=== PATIENT | female | born 1985 | race Two or more races ===

== ENCOUNTER 2024-12-06 15:16 | Inpatient (IN) | payer MEDICAID, OTHER ==
[~2024-12-06] VITALS: Ht 162.6 cm; Wt 84.0 kg
--- NOTE | 2024-12-06 15:36 | ED.PDOC ---
SHOT MAN HPI Comments HPI: Suprapubic abdominal pain and vaginal bleeding x3 weeks, found unresponsive at scene by EMS. Patient diagnosed with uterine tumor at [place] 10 days ago with results sent to her OBGYN in [place]. Per EMS estimated 507 100 cc of blood loss found on the floor of the bathroom. They started the patient on fluid hydration and her blood pressure improved. On arrival she is very weak and pale but awake and answers questions. Patient was evaluated immediately. OB Gyne were consulted immediately. Initial Vital Signs: Temp : BP: HR: RR: SpO2: Past Medical History: Uterine Tumor Past Surgical History: Tubal Ligation, , Gallbladder Social History: Denies smoking, ETOH, or drug use. Medications: No medications. Allergies: NKDA HPI: Poor Historian. Past Medcial History: Past Surgical History: REVIEW OF SYSTEMS: CONSTITUTIONAL: Denies acute: fever, diaphoresis, chills, HEAD: Denies acute: headache, photophobia Eyes: Denies acute: Double vision, vision loss, eye pain, eye discharge. EARS: Denies acute: tinnitus, hearing loss, ear discharge, ear pain, THROAT: Denies acute: sore throat, swelling, difficulty swallowing , pain with swallowing, change in voice. NECK: Denies acute: neck pain, neck swelling, stiff neck. HEART: Denies acute : chest pain, palpitations, LUNGS: Denies acute: SOB, wheezing, cough, hemoptysis ABDOMEN: Denies acute: Nausea, Vomiting, diarrhea, melena , hematemesis, hematochezia SKIN: Denies acute: rash, redness, lesions, itchiness. EXTREMITIES: Denies acute: calf pain, numbness, tingling, weakness, denies pain in extremity. Denies acute: Low back pain. Neuro: Denies acute: focal neurological deficit, motor or sensory focal neurological de ficit, tremors, seizure like activity, confusion, change in mental status, loss of bowel or bladder function, cauda equina like symptoms. : Denies acute: dysuria, hematuria, flank pain, increase in urinary frequency. PSYCH: Denies acute: hallucination, suicidal ideation, homicidal ideation. FEMALE: Denies acute: foul odor, unusual discharge. PHYSICAL EXAM: General: no acute distress, awake and alert. Head: normocephalic, atraumatic. Neck: supple, trachea is midline, no swelling. Throat: Normal phonation. Eyes:, no erythema, no purulent discharge, no proptosis, no icterus. Heart: regular tachycardic, no significant murmur appreciated. Lungs: no apparent respiratory distress, Able to speak in full sentences. No wheezing, no rhonchi, no crackles. No stridors Clear to auscultation bilaterally. Abdomen: Suprapubic tender to palpation, non distended, soft, no guarding, no rebound, + bowel sounds. Noted large clot at the front of the vagina. Neuro: Awake, Alert, oriented to name, self, situation, follows commands GCS=15. Speech is normal. Skin: no petechia, no purpura, no cyanosis, noticeably-pale, not jaundice. Lower extremities: --no - Pitting edema no deformity, no focal swelling, no calf TTP. Makes eye contact. moves all four extremities. Face: no apparent facial droop. Chief Complaint: Vaginal Bleed Time Seen by MD: 15:35 Reviewed Notes: Medications, Allergies Allergies: Coded Allergies: NO KNOWN ALLERGIES (Unverified , 12/06/24) Information Source: Patient, Emergency Med Personnel Mode of Arrival: EMS Was a procedure done? Was a procedure done?: No Differential Diagnosis (HEARING INSTRUMENT SPECIALIST) Vaginal Bleeding: - Complete, - Incomplete, - Inevitable, - Missed, - Threatened, Abruptio Placentae, Blood Loss Anemia, Cervicitis, Dysmenorrhea, Ectopic , Hormonal, Menorrhagia, Menometrorrhagia, Menstrual Bleeding, Myomatous Uterus, PID, Placenta Previa, Precipitous Hct, Trauma, UTI X-Ray, Labs, Meds, VS Vital Signs Date Time Temp Pulse Resp B/P (MAP) Pulse Ox O2 Delivery O2 Flow Rate FiO2 12/06/24 22:00 98.6 89 23 101/53 (69) 100 98.6 12/06/24 20:23 98.1 88 26 98/56 98.1 12/06/24 20:23 98.1 88 26 98/54 (69) 100 98.1 12/06/24 20:18 97 17 100 Nasal Cannula* 2 N/A Non-Rebreather 12/06/24 20:00 89 12/06/24 19:30 99.1 97 18 104/60 (75) 100 99.1 12/06/24 19:02 98.6 103 19 94/60 (71) 100 98.6 12/06/24 19:00 98.6 103 19 94/60 98.6 12/06/24 18:15 98.6 121 26 105/67 98.6 12/06/24 18:00 98.7 108 28 102/55 (71) 100 98.7 12/06/24 17:55 98.7 108 28 110/69 98.7 12/06/24 16:31 98.7 93 18 84/51 (62) 92 12/06/24 16:00 110 12/06/24 15:47 91 19 100 Non-Rebreather 14 N/A 12/06/24 15:47 97.9 91 19 115/63 (80) 100 97.9 Lab Test 12/06/24 22:53 12/06/24 18:25 12/06/24 17:45 12/06/24 17:00 Range/Units Troponin I High Sensitivity 7 16 </=34 ng/L Urine Color Colorless Yellow Urine Clarity Clear Clear Urine pH 5.0 5.0-9.0 Urine Specific [place] 1.008 1.001-1.035 Urine Protein Negative Negative Urine Ketones Negative Negative Urine Blood Negative Negative /uL Urine Nitrite Negative Negative Urine Bilirubin Negative Negative Urine Urobilinogen Normal Negative mg/dL Urine Leukocyte Esterase Negative Negative /uL Urine RBC <1 0 - 4 /hpf Urine Microscopic WBC 1 0-5 /HPF Urine Squamous Epithelial Cells Few <5 /hpf Urine Bacteria None seen None Seen /hpf Urine Glucose Normal Normal mg/dL Hemoglobin 7.0 #*L 12.2-16.2 g/dL Hematocrit 21.3 #L 36.0-46.0 % Prothrombin Time 11.4 9.3-11.8 sec Prothrombin Time INR 1.08 0.9-1.15 Activated Partial Thromboplast Time 20.1 L 24.5-34.5 SEC Test 12/06/24 16:00 Range/Units White Blood Count 10.5 4.4-10.8 10^3/uL Red Blood Count 2.86 L 4.0-5.20 10^6/uL Hemoglobin 8.5 L 12.2-16.2 g/dL Hematocrit 26.8 L 36.0-46.0 % Mean Corpuscular Volume 93.8 80.0-100.0 fL Mean Corpuscular Hemoglobin 29.7 28.0-32.0 pg Mean Corpuscular Hemoglobin Concent 31.7 L 32.0-36.0 g/dL Red Cell Distribution Width 13.2 11.8-14.3 % Platelet Count 199 140-450 10^3/uL Mean Platelet Volume 9.4 6.9-10.8 fL Neutrophils (%) (Auto) 82.6 H 37.0-80.0 % Lymphocytes (%) (Auto) 12.4 10.0-50.0 % Monocytes (%) (Auto) 4.3 0.0-12.0 % Eosinophils (%) (Auto) 0.5 0.0-7.0 % Basophils (%) (Auto) 0.2 0.0-2.0 % Neutrophils # (Auto) 8.7 H 1.6-8.6 10 ^3/uL Lymphocytes # (Auto) 1.3 0.4-5.4 10 ^3/uL Monocytes # (Auto) 0.5 0-1.3 10 ^3/uL Eosinophils # (Auto) 0.1 0-0.8 10 ^3/uL Basophils # (Auto) 0 0-0.2 10 ^3/uL Nucleated Red Blood Cells 0.1 % Sodium Level 141 136-145 mmol/L Potassium Level 3.3 L 3.5-5.1 mmol/L Chloride Level 111 H 98-107 mmol/L Carbon Dioxide Level 18 L 20-31 mmol/L Anion Gap 12 5-15 Blood Urea Nitrogen 10 9-23 mg/dL Creatinine 0.72 0.550-1.02 mg/dL Glomerular Filtration Rate Calc 109 >90 mL/min BUN/Creatinine Ratio 13.9 10.0-20.0 Serum Glucose 158 H 74-106 mg/dL Calcium Level 8.2 L 8.7-10.4 mg/dL Total Bilirubin 0.6 0.2-1.0 mg/dL Aspartate Amino Transferase (AST) 15 13-40 U/L Alanine Aminotransferase (ALT) 12 7-40 U/L Alkaline Phosphatase 59 46-116 U/L Troponin I High Sensitivity 8 </=34 ng/L Total Protein 5.9 5.7-8.2 g/dL Albumin 3.8 3.2-4.8 g/dL Current Medications Medications (Trade) Dose Ordered Sig/Isa Route Start Time Stop Time Status Last Admin Sodium Chloride 1,000 ml @ 1,000 mls/hr Q1H ONCE IV 12/06/24 15:30 12/06/24 16:29 DC 12/06/24 15:55 Tranexamic Acid 1000 mg/Sodium Chloride 110 ml @ 300 mls/hr ONCE ONCE IV 12/06/24 15:30 12/06/24 15:51 DC 12/06/24 16:52 Ceftriaxone Sodium 50 ml @ 100 mls/hr ONCE ONCE IV 12/06/24 16:30 12/06/24 16:59 DC 12/06/24 17:22 Sodium Chloride 1,000 ml @ 1,000 mls/hr Q1H ONCE IV 12/06/24 17:30 12/06/24 18:29 DC 12/06/24 17:32 Sodium Chloride 1,000 ml @ 60 mls/hr [id number] IV 12/06/24 21:15 12/06/24 21:48 Acetaminophen/ Hydrocodone Bitart ([place] 5/325MG Tab) 1 tab Q4HP PRN PO 12/06/24 21:15 12/06/24 21:49 Potassium Chloride (Klor-Con Tablet) 20 meq ONCE ONCE PO 12/06/24 21:15 12/06/24 21:37 DC 12/06/24 21:49 PATIENT: BARBER HOLTCCT: [id number]: [id number] : 1985 LOC: ER ROOM / BED: / AGE / SEX: 39 / F ADM STATUS: REG ER SERVICE 1524 ORDERING PHYSICIAN: XOCHITL DAWN DO PROCEDURE(s): PELTR - TRANSVAGINAL US NON OB REASON: VAG BLEED ORDER NUMBER(s): [id number], ACCESSION NUMBER(s): [id number] EXAM: US TRANSVAGINAL US NON OB CLINICAL HISTORY: VAG BLEED TECHNIQUE: Transabdominal and transvaginal ultrasound of the pelvis with color Doppler flow as clinically indicated. COMPARISON: None Findings: Same-day quantitative beta-hCG is not available. Uterus measures 14.5 x 7.7 x 6.4 cm in size with relatively homogeneous echotexture and normal contours. 7.2 x 5.6 x 5.9 cm hypoechoic, vascular lesion in the lower uterine fundus. Endometrial thickness measures 1.5 cm with smooth contour. Cervix appears grossly unremarkable. Bilateral ovaries not visualized. Trace free fluid in the cul-de-sac. Impression: 1. 7.2 cm hypoechoic lesion in the lower uterine fundus which may reflect a fibroid. Recommend contrast enhanced MRI for further evaluation. 2. Thickened endometrium, nonspecific. Correlate with phase of menstrual cycle. [place] on MRI. 3. Bilateral ovaries not visualized. 4. Trace free fluid in the cul de sac, nonspecific. ATED BY: ZAINAB HOLT DO DICTATED DATE/TIME: 12/06/241645 SIGNED BY: ZAINAB HLOT DO SIGNED DATE/TIME: 12/06/241645 Time of 1ST Reevaluation: 16:35 Reevaluation 1ST: Unchanged Time of 2ND Reevaluation: 16:08 (OB Gyne team came to bedside. They agree with our management. They recommend to add FFP as well. Doctor. Johnson. ) Consultation: varitypist Patient Education/Counseling: Diagnosis, Treatment Family Education/Counseling: Other Comments Patient presented with the above HPI.--hemorrhagic shock, severe vaginal bleed---workup was initiated. patient was found with the above mentioned diagnosis. the following medications were ordered: please refer to order lists of meds and tests obtained by myself Dr. Dawn. Patient ED course and VS have been stabilized. Patient has been reassessed in the ED and remained in a stable condition. Pertinent incidental findings were discussed with the patient and/or family. Patient/family voices understanding and is agreeable with plan. Patient has been observed in the ED adequate length of time to insure improvement/stability. Escalation of care considered: Consideration of escalation to observation or admission Patient was ADMITTED to the medicine team for further evaluation and treatment of their presentation. Patient was consented for blood transfusion. All the reports of any imaging studies that were ordered by myself were reviewed by myself. Departure 1 Departure Time of Disposition: 16:08 Impression: Primary Impression: Vaginal bleeding Additional Impressions: Hemorrhagic shock Uterine fibroid Symptomatic anemia Disposition: ADMITTED INPATIENT Admit to: Tele Condition: Guarded Discharged With: Self Critical Care Note Critical Care Time?: Yes (90 min-critical care time only) I personally scribed for XOCHITL DAWN DO ([email or web address]) on 12/06/24 at 15:36. Electronically submitted by Owen Ahuja ([email or web address]). I personally scribed for XOCHITL DAWN DO ([email or web address]) on 12/06/24 at 15:57. Electronically submitted by Owen Ahuja ([email or web address]). I personally scribed for XOCHITL DAWN DO ([email or web address]) on 12/06/24 at 18:58. Electronically submitted by Tam Zhang ([email or web address]). XOCHITL DAWN DO Dec 06, 2024 15:36
[2024-12-06 15:47] VITALS: PULSE 91; RESP 19; O2SAT 100
[2024-12-06] MEDS: SODIUM CHLORIDE 0.9% 1,000 ML IV ONE ×2 (15:55→17:32)
[2024-12-06 16:23] LABS: Basophils # (auto) 0 10 ^3/uL (0-0.2); Basophils % (auto) 0.2 % (0.0-2.0); Eosinophils # (auto) 0.1 10 ^3/uL (0-0.8); Eosinophils % (auto) 0.5 % (0.0-7.0); Hematocrit 26.8 % (36.0-46.0); Hemoglobin 8.5 g/dL (12.2-16.2); Lymphocytes # (auto) 1.3 10 ^3/uL (0.4-5.4); Lymphocytes % (auto) 12.4 % (10.0-50.0); Mean Corpuscular Hemoglobin 29.7 pg (28.0-32.0); Mean Corpuscular Hgb Conc. 31.7 g/dL (32.0-36.0); Mean Corpuscular Volume 93.8 fL (80.0-100.0); Monocytes # (auto) 0.5 10 ^3/uL (0-1.3); Monocytes % (auto) 4.3 % (0.0-12.0); Neutrophils # (auto) 8.7 10 ^3/uL (1.6-8.6); Neutrophils % (auto) 82.6 % (37.0-80.0); Nucleated Red Blood Cells % 0.1 %; Platelet Count (auto) 199 10^3/uL (140-450); Red Blood Cells 2.86 10^6/uL (4.0-5.20); Red Cell Distribution Width 13.2 % (11.8-14.3); White Blood Cell 10.5 10^3/uL (4.4-10.8)
--- NOTE | 2024-12-06 16:48 | DVH ---
EXAM: US TRANSVAGINAL US NON OB CLINICAL HISTORY: VAG BLEED TECHNIQUE: Transabdominal and transvaginal ultrasound of the pelvis with color Doppler flow as clinic ally indicated. COMPARISON: None Findings: Same-day quantitative beta-hCG is not available. Uterus measures 14.5 x 7.7 x 6.4 cm in size with relatively homogeneous echotexture and normal contou rs. 7.2 x 5.6 x 5.9 cm hypoechoic, vascular lesion in the lower uterine fundus. Endometrial thickness measures 1.5 cm with smooth contour. Cervix appears grossly unremarkable. Bilateral ovaries not visualized. Trace free fluid in the cul-de-sac. Impression: 1. 7.2 cm hypoechoic lesion in the lower uterine fundus which may reflect a fibroid. Recommend contra st enhanced MRI for further evaluation. 2. Thickened endometrium, nonspecific. Correlate with phase of menstrual cycle. [place] on MRI. 3. Bilateral ovaries not visualized. 4. Trace free fluid in the cul de sac, nonspecific.
[2024-12-06] MEDS: TRANEXAMIC ACID 1,000 MG in SODIUM CHL 0.9% 100 ML IV ONE (16:52)
[2024-12-06 16:58] LABS: Alanine Aminotransferase 12 U/L (7-40); Alkaline Phosphatase 59 U/L (46-116)
[2024-12-06 16:59] LABS: Albumin 3.8 g/dL (3.2-4.8); Anion Gap 12 (5-15); Aspartate Aminotransferase 15 U/L (13-40); BUN/Creatinine Ratio 13.9 (10.0-20.0); Bilirubin, Total 0.6 mg/dL (0.2-1.0); Blood Urea Nitrogen 10 mg/dL (9-23); Calcium 8.2 mg/dL (8.7-10.4); Carbon Dioxide 18 mmol/L (20-31); Chloride 111 mmol/L (98-107); Glucose 158 mg/dL (74-106); Potassium 3.3 mmol/L (3.5-5.1); Sodium 141 mmol/L (136-145); Total Protein 5.9 g/dL (5.7-8.2)
[2024-12-06] MEDS: cefTRIAXone 1GM/50ML D5W 50 ML IV ONE (17:22)
[2024-12-06 17:34] LABS: INR 1.08 (0.9-1.15); Partial Thromboplastin Time 20.1 SEC (24.5-34.5); Prothrombin Time 11.4 sec (9.3-11.8)
[2024-12-06 17:55] VITALS: BP 110/69; PULSE 108; RESP 28; TEMP 98.7
[2024-12-06 18:13] LABS: Hematocrit 21.3 % (36.0-46.0)
[2024-12-06 18:15] VITALS: BP 105/67; PULSE 121; RESP 26; TEMP 98.6
[2024-12-06 18:55] LABS: Urine Bacteria None Seen /hpf (None Seen)
[2024-12-06 19:00] VITALS: BP 94/60; PULSE 103; RESP 19; TEMP 98.6
[2024-12-06 19:04] LABS: Urine Blood Negative /uL (Negative); Urine Clarity Clear (Clear); Urine Color Colorless (Yellow); Urine Protein, UAD Negative (Negative); Urine Specific Gravity 1.008 (1.001-1.035); Urine Squamous Epithelial Cell FEW /hpf (<5); Urine Urobilinogen Normal (Negative); Urine WBC 1 /HPF (0-5)
[2024-12-06 20:18] VITALS: PULSE 97; RESP 17; O2SAT 100
[2024-12-06 20:23] VITALS: BP 98/56; PULSE 88; RESP 26; TEMP 98.1
[2024-12-06] MEDS ORDERED: ACETAMINOPHEN 325 MG TAB PO PRN (21:15)
[2024-12-06] MEDS: SODIUM CHLORIDE 0.9% 1,000 ML IV SCH (21:48)
[2024-12-06] MEDS: POTASSIUM CHL 20 Meq TABLET PO ONE (21:49)
[2024-12-06] MEDS: HYDROcodone-ACET 5/325MG TAB PO PRN (21:49)
--- NOTE | 2024-12-06 23:04 | DVHHP2 ---
History of Present Illness Reason for Visit: Vaginal bleeding History of Present Illness The patient is a 39-year-old female with past medical history of uterine tumor presented to [facility] ED with complaint of suprapubic abdominal pain and vaginal bleeding for the past 3 weeks. Patient diagnosed with uterine tumor at [place] 10 days ago with results sent to her OBGYN in [place]. Patient was seen and evaluated in the ED, laboratory data shows WBC 10.5, hemoglobin 7.0, hematocrit 21.3, platelets 199, sodium 141, potassium 3.3, BUN 10, creatinine 0.72, GFR 109, glucose 158, calcium 8.2, troponin 16. Patient will receive 1 unit of frozen plasma, please see medication orders section in the computer. On my assessment, at bedside, patient denied chest pain, no headache, no dizziness, no nausea, no vomiting, no fever, no chills. Patient was admitted for further evaluation and medical management. Past Medical History Uterine Tumor Past Surgical History Tubal Ligation, , Gallbladder Family History Reviewed, noncontributory to the management of this case. Past Social History The patient lives at home, denies smoking, alcohol or illicit drugs abuse. Review of Systems Constitutional: Yes: Weakness; No: Fever, Chills, Sweats, Malaise, Other Eyes: No: Pain, Vision change, Conjunctivae inflammation, Eyelid inflammation, Other, Redness ENT: No: Ear pain, Ear discharge, Nose pain, Nose discharge, Nose congestion, Mouth pain, Mouth swelling, Throat pain, Throat swelling, Other Respiratory: No: Cough, Dry, Shortness of breath, SOB with excertion, Wheezing, Hemoptysis, Pleuritic Pain, Sputum, Wheezing, Other Cardiovascular: No: Chest Pain, Palpitations, Orthopnea, Paroxysmal Noc. Dyspnea, Edema, Lt Headedness, Other Gastrointestinal: No: Nausea, Vomiting, Abdominal Pain, Diarrhea, Constipation, Melena, Hematochezia, Other Genitourinary: No Dysuria, No Frequency, No Incontinence, No Hematuria, No Retention; Other (Vaginal bleed) Musculoskeletal: No: other, neck pain, shoulder pain, arm pain, back pain, hand pain, leg pain, foot pain Skin: No: Rash, Lesions, Jaundice, Bruising, Other Neurological: No: Weakness, Numbness, Incoordination, Change in speech, Confusion, Seizures, Other Allergies: Coded Allergies: NO KNOWN ALLERGIES (Unverified , 12/06/24) Medications Current Medications Medications Dose Ordered Sig/Isa Route Start Time Stop Time Status Last Admin Dose Admin Sodium Chloride 1,000 ml @ 60 mls/hr [id number] IV 12/06/24 21:15 12/06/24 21:48 60 MLS/HR Acetaminophen/ Hydrocodone Bitart 1 tab Q4HP PRN PO 12/06/24 21:15 12/06/24 21:49 1 TAB Ondansetron HCl 4 mg Q4HP PRN IV 12/06/24 21:15 Docusate Sodium 100 mg BIDPRN PRN PO 12/06/24 21:15 Acetaminophen 650 mg Q6HP PRN PO 12/06/24 21:15 Exam Vital Signs Vital Signs Date Time Temp Pulse Resp B/P (MAP) Pulse Ox O2 Delivery O2 Flow Rate FiO2 12/06/24 22:00 98.6 89 23 101/53 (69) 100 98.6 12/06/24 20:18 Nasal Cannula* 2 N/A Non-Rebreather General Appearance: Alert, Oriented X3, Cooperative, No acute distress HEENT: Atraumatic, PERRLA, EOMI, Mucous membr. moist/pink Respiratory: Clear to auscultation, Normal air movement Cardiovascular: Regular rate, Normal S1, Normal S2, No murmurs Abdominal: Normal bowel sounds, Soft, No tenderness, No hepatospenomegaly, No masses Extremities: No clubbing, No cyanosis, No edema, Normal pulses, No tenderness/swelling Skin: No rashes, No breakdown, No significant lesion Neuro: Normal speech, Normal tone, Sensation intact, Cranial nerves 3-12 NL, Reflexes 2+, Other (Generalized weakness) Psych/Mental Status: Mental status NL, Mood NL Labs/Xrays Labs Test 12/06/24 22:53 12/06/24 18:25 12/06/24 17:45 12/06/24 17:00 Range/Units Urine Color Colorless Yellow Urine Clarity Clear Clear Urine pH 5.0 5.0-9.0 Urine Specific [place] 1.008 1.001-1.035 Urine Protein Negative Negative Urine Ketones Negative Negative Urine Blood Negative Negative /uL Urine Nitrite Negative Negative Urine Bilirubin Negative Negative Urine Urobilinogen Normal Negative mg/dL Urine Leukocyte Esterase Negative Negative /uL Urine RBC <1 0 - 4 /hpf Urine Microscopic WBC 1 0-5 /HPF Urine Squamous Epithelial Cells Few <5 /hpf Urine Bacteria None seen None Seen /hpf Urine Glucose Normal Normal mg/dL Hemoglobin 7.0 #*L 12.2-16.2 g/dL Hematocrit 21.3 #L 36.0-46.0 % Prothrombin Time 11.4 9.3-11.8 sec Prothrombin Time INR 1.08 0.9-1.15 Activated Partial Thromboplast Time 20.1 L 24.5-34.5 SEC Test 12/06/24 16:00 Range/Units White Blood Count 10.5 4.4-10.8 10^3/uL Red Blood Count 2.86 L 4.0-5.20 10^6/uL Mean Corpuscular Volume 93.8 80.0-100.0 fL Mean Corpuscular Hemoglobin 29.7 28.0-32.0 pg Mean Corpuscular Hemoglobin Concent 31.7 L 32.0-36.0 g/dL Red Cell Distribution Width 13.2 11.8-14.3 % Platelet Count 199 140-450 10^3/uL Mean Platelet Volume 9.4 6.9-10.8 fL Neutrophils (%) (Auto) 82.6 H 37.0-80.0 % Lymphocytes (%) (Auto) 12.4 10.0-50.0 % Monocytes (%) (Auto) 4.3 0.0-12.0 % Eosinophils (%) (Auto) 0.5 0.0-7.0 % Basophils (%) (Auto) 0.2 0.0-2.0 % Neutrophils # (Auto) 8.7 H 1.6-8.6 10 ^3/uL Lymphocytes # (Auto) 1.3 0.4-5.4 10 ^3/uL Monocytes # (Auto) 0.5 0-1.3 10 ^3/uL Eosinophils # (Auto) 0.1 0-0.8 10 ^3/uL Basophils # (Auto) 0 0-0.2 10 ^3/uL Nucleated Red Blood Cells 0.1 % Sodium Level 141 136-145 mmol/L Potassium Level 3.3 L 3.5-5.1 mmol/L Chloride Level 111 H 98-107 mmol/L Carbon Dioxide Level 18 L 20-31 mmol/L Anion Gap 12 5-15 Blood Urea Nitrogen 10 9-23 mg/dL Creatinine 0.72 0.550-1.02 mg/dL Glomerular Filtration Rate Calc 109 >90 mL/min BUN/Creatinine Ratio 13.9 10.0-20.0 Serum Glucose 158 H 74-106 mg/dL Calcium Level 8.2 L 8.7-10.4 mg/dL Total Bilirubin 0.6 0.2-1.0 mg/dL Aspartate Amino Transferase (AST) 15 13-40 U/L Alanine Aminotransferase (ALT) 12 7-40 U/L Alkaline Phosphatase 59 46-116 U/L Total Protein 5.9 5.7-8.2 g/dL Albumin 3.8 3.2-4.8 g/dL PATIENT: HARIKA KISER ACCT: [id number] UNIT: [id number] : 1985 LOC: ER ROOM / BED: / AGE / SEX: 39 / F ADM STATUS: REG ER SERVICE 1524 ORDERING PHYSICIAN: XOCHITL DAWN DO PROCEDURE(s): PELTR - TRANSVAGINAL US NON OB REASON: VAG BLEED ORDER NUMBER(s): [id number], ACCESSION NUMBER(s): [id number] EXAM: US TRANSVAGINAL US NON OB CLINICAL HISTORY: VAG BLEED TECHNIQUE: Transabdominal and transvaginal ultrasound of the pelvis with color Doppler flow as clinically indicated. COMPARISON: None Findings: Same-day quantitative beta-hCG is not available. Uterus measures 14.5 x 7.7 x 6.4 cm in size with relatively homogeneous echotexture and normal contours. 7.2 x 5.6 x 5.9 cm hypoechoic, vascular lesion in the lower uterine fundus. Endometrial thickness measures 1.5 cm with smooth contour. Cervix appears grossly unremarkable. Bilateral ovaries not visualized. Trace free fluid in the cul-de-sac. Impression: 1. 7.2 cm hypoechoic lesion in the lower uterine fundus which may reflect a fibroid. Recommend contrast enhanced MRI for further evaluation. 2. Thickened endometrium, nonspecific. Correlate with phase of menstrual cycle. [place] on MRI. 3. Bilateral ovaries not visualized. 4. Trace free fluid in the cul de sac, nonspecific. Assessment/Plan Assessment/Plan Vaginal bleeding Hemorrhagic shock Uterine fibroid Symptomatic anemia Plan 1. Admit to telemetry unit 2. Breathing treatment 3. Pain control management 4. Management of fluids and electrolytes 5. Consultation for hospitalist/mold worker 6. Diagnostic tests transvaginal ultrasound 7. DVT prophylaxis-on SCDs 8. Repeat labs CBC, CMP in a.m. 9. Continue with current medical management 10. Treatment plan discussed with patient and RN. Patient verbalized understanding. Plan discussed with: Patient, Other (RN) My Orders Orders - MATT BENITEZ DNP Procedure Category Date Status Time Allergies VIANEY 12/06/24 In Process 21:11 Code Status CODE 12/06/24 Transmitted 21:11 Sodium Chloride 0.9% PHA 12/06/24 In Process 21:15 Oxygen Per Hour RT 12/06/24 Transmitted 21:11 Hydrocodone-Acet PHA 12/06/24 In Process 5/325mg Tab (Sayre 21:15 Ondansetron Hcl PHA 12/06/24 In Process (Zofran) 21:15 Docusate Sodium PHA 12/06/24 In Process Capsule (Colace 21:15 Complete Blood Count LAB 12/07/24 Verified 04:00 Comprehensive LAB 12/07/24 Verified Metabolic Panel 04:00 Cardiac DIET 12/07/24 Transmitted Diet-2gna,Lofat,Lochol Breakfast Condition: Serious VIANEY 12/06/24 In Process 21:11 Acetaminophen Tablet PHA 12/06/24 In Process (Tylenol Tablet) 21:15 Bedrest With Bathroom VIANEY 12/06/24 In Process Privileg 21:11 Sequential VIANEY 12/06/24 In Process Compression Device Admit ADMIT 12/06/24 Verified 23:02 Nitroglycerin PHA 12/06/24 Verified Sublingual (Ntrostat 23:15 Morphine Sulfate PHA 12/06/24 Verified Injection 23:15 Notify Of Changes VIANEY 12/06/24 Verified From Base 23:02 Nursing Program Manager For [facility] 12/06/24 Verified 24 Hours 23:02 Emergency Dysrhythmia VIANEY 12/06/24 Verified Protocol 23:02 Rhythm Strips Once VIANEY 12/06/24 Verified Every Shift 23:02 Oxygen By Nasal RT 12/06/24 Verified Cannula 23:02 Problem List: (1) Vaginal bleeding (2) Hemorrhagic shock (3) Uterine fibroid (4) Symptomatic anemia Date of Service: Dec 06, 2024 Billing Provider: MATT BENITEZ DNP Common Visit Codes: [id number] INP/OBS CARE (HIGH) MATT BENITEZ DNP Dec 06, 2024 23:03
[2024-12-06] MEDS ORDERED: NITROGLYCERIN 0.4 MG SL TAB SL PRN (23:15)
[2024-12-06] MEDS ORDERED: MORPHINE SULFATE INJ 2 MG/ml SYRG IV PRN (23:15)
[2024-12-07] VITALS (14 sets, daily range): BP systolic 89–108; BP diastolic 45–67; PULSE 70–107; RESP 12–33; TEMP 97.6–98.8; O2SAT 94–100
[2024-12-07 06:23] LABS: Anion Gap 7 (5-15); Bilirubin, Total 0.8 mg/dL (0.2-1.0); Glucose 98 mg/dL (74-106); Potassium 3.9 mmol/L (3.5-5.1); Sodium 142 mmol/L (136-145)
[2024-12-07 06:24] LABS: Chloride 116 mmol/L (98-107)
[2024-12-07 06:25] LABS: Alanine Aminotransferase < 9 U/L (7-40); Albumin 2.9 g/dL (3.2-4.8); Alkaline Phosphatase 43 U/L (46-116); Aspartate Aminotransferase 9 U/L (13-40); BUN/Creatinine Ratio 11.4 (10.0-20.0); Blood Urea Nitrogen < 5 mg/dL (9-23); Calcium 7.6 mg/dL (8.7-10.4); Carbon Dioxide 19 mmol/L (20-31); Total Protein 4.7 g/dL (5.7-8.2)
[2024-12-07 07:30] LABS: Basophils # (auto) 0 10 ^3/uL (0-0.2); Basophils % (auto) 0.2 % (0.0-2.0); Eosinophils # (auto) 0.1 10 ^3/uL (0-0.8); Eosinophils % (auto) 1.5 % (0.0-7.0); Hematocrit 26.6 % (36.0-46.0); Lymphocytes # (auto) 1.5 10 ^3/uL (0.4-5.4); Lymphocytes % (auto) 34.3 % (10.0-50.0); Mean Corpuscular Hgb Conc. 33.7 g/dL (32.0-36.0); Mean Corpuscular Volume 88.9 fL (80.0-100.0); Monocytes # (auto) 0.4 10 ^3/uL (0-1.3); Monocytes % (auto) 8.2 % (0.0-12.0); Neutrophils # (auto) 2.5 10 ^3/uL (1.6-8.6); Neutrophils % (auto) 55.8 % (37.0-80.0); Nucleated Red Blood Cells % 0.2 %; Platelet Count (auto) 151 10^3/uL (140-450); Red Blood Cells 2.99 10^6/uL (4.0-5.20); Red Cell Distribution Width 13.6 % (11.8-14.3); White Blood Cell 4.4 10^3/uL (4.4-10.8)
--- NOTE | 2024-12-07 11:57 | DVHPN2 ---
Subjective The patient seen and examined at bedside. The patient is still weak and dizzy. Reviewed: Care Plan, H&P, Labs, Medications, Previous Orders, Radiology Changes from previous H/P or p: No Changes Eyes: No Pain, No Vision change, No Conjunctivae inflammation, No Eyelid inflammation, No Other, No Redness ENT: No Ear pain, No Ear discharge, No Nose pain, No Nose discharge, No Nose congestion, No Mouth pain, No Mouth swelling, No Throat pain, No Throat swelling, No Other Cardiovascular: No Chest Pain, No Palpitations, No Orthopnea, No Paroxysmal Noc. Dyspnea, No Edema, No Lt Headedness, No Other Respiratory: No Cough, No Dry, No Shortness of breath, No SOB with excertion, No Wheezing, No Hemoptysis, No Pleuritic Pain, No Sputum, No Other Gastrointestinal: No Nausea, No Vomiting, No Abdominal Pain, No Diarrhea, No Constipation, No Melena, No Hematochezia, No Other Genitourinary: No Dysuria, No Frequency, No Incontinence, No Hematuria, No Retention; Other (Vaginal bleed) Musculoskeletal: No other, No neck pain, No shoulder pain, No arm pain, No back pain, No hand pain, No leg pain, No foot pain Skin: No Rash, No Lesions, No Jaundice, No Bruising, No Other Objective Vitals Vital Signs Date Time Temp Pulse Resp B/P (MAP) Pulse Ox O2 Delivery O2 Flow Rate FiO2 12/07/24 09:00 98.3 91 16 91/57 (68) 94 98.3 12/07/24 08:05 Room Air* 0 21 Intake/Output Intake and Output 12/07/24 07:00 Intake Total 4340 ml Output Total 855 ml Balance 3485 ml Intake Oral 80 ml IV Total 2460 ml Blood Product 1200 ml Other 600 ml Output Urine Total 855 ml General Appearance: Alert, Oriented X3, Cooperative, mild distress HEENT: Atraumatic, PERRLA, EOMI, Mucous membr. moist/pink Neck: Supple Lungs: Clear to auscultation, Normal air movement Cardiovascular: Regular rate, Normal S1, Normal S2, No murmurs, Gallops, Rubs Abdomen: Normal bowel sounds, Soft, No tenderness Neuro: Cranial nerves 3-12 NL Psych/Mental Status: Mental status NL Medications Current Medications Medications Dose Ordered Sig/Isa Route Start Time Stop Time Status Last Admin Dose Admin Sodium Chloride 1,000 ml @ 60 mls/hr [id number] IV 12/06/24 21:15 12/06/24 21:48 60 MLS/HR Acetaminophen/ Hydrocodone Bitart 1 tab Q4HP PRN PO 12/06/24 21:15 12/07/24 10:39 1 TAB Ondansetron HCl 4 mg Q4HP PRN IV 12/06/24 21:15 Docusate Sodium 100 mg BIDPRN PRN PO 12/06/24 21:15 Acetaminophen 650 mg Q6HP PRN PO 12/06/24 21:15 Nitroglycerin 0.4 mg Q5MINP PRN SL 12/06/24 23:15 Morphine Sulfate 2 mg Q30M PRN IV 12/06/24 23:15 Laboratory Results Laboratory Tests 12/07/24 05:10 Chemistry Test 12/06/24 16:00 12/07/24 05:10 Albumin 3.8 g/dL (3.2-4.8) 2.9 g/dL (3.2-4.8) L Calcium Level 8.2 mg/dL (8.7-10.4) L 7.6 mg/dL (8.7-10.4) L Total Protein 5.9 g/dL (5.7-8.2) 4.7 g/dL (5.7-8.2) L Coagulation Test 12/06/24 17:00 Prothrombin Time 11.4 sec (9.3-11.8) Prothrombin Time INR 1.08 (0.9-1.15) Activated Partial Thromboplast Time 20.1 SEC (24.5-34.5) L LFT Test 12/06/24 16:00 12/07/24 05:10 Alanine Aminotransferase (ALT) 12 U/L (7-40) < 9 U/L (7-40) Alkaline Phosphatase 59 U/L (46-116) 43 U/L (46-116) L Aspartate Amino Transferase (AST) 15 U/L (13-40) 9 U/L (13-40) L Total Bilirubin 0.6 mg/dL (0.2-1.0) 0.8 mg/dL (0.2-1.0) Urinalysis Test 12/06/24 18:25 Urine Color Colorless (Yellow) Urine Clarity Clear (Clear) Urine pH 5.0 (5.0-9.0) Urine Specific [place] 1.008 (1.001-1.035) Urine Protein Negative (Negative) Urine Ketones Negative (Negative) Urine Blood Negative /uL (Negative) Urine Nitrite Negative (Negative) Urine Bilirubin Negative (Negative) Urine Urobilinogen Normal mg/dL (Negative) Urine Leukocyte Esterase Negative /uL (Negative) Urine RBC <1 /hpf (0 - 4) Urine Microscopic WBC 1 /HPF (0-5) Urine Squamous Epithelial Cells Few /hpf (<5) Urine Bacteria None seen /hpf (None Seen) Urine Glucose Normal mg/dL (Normal) Labs and/or images reviewed: Labs reviewed by me Assessment/Plan Assessment/Plan Vaginal bleeding Hemorrhagic shock Uterine fibroid Symptomatic anemia And colon continuing current management. Transfuse as needed if hemoglobin less than seven. Waiting for OBGYN to see the patient. Plan discussed with: Patient, Spouse Date of Service: Dec 07, 2024 Billing Provider: BARBARA DAI MD Common Visit Codes: [id number] INP/OBS CARE(HIGH) BARBARA DAI MD Dec 07, 2024 11:57
--- NOTE | 2024-12-07 21:04 | DVHINCON2 ---
DATE OF CONSULTATION: 12/07/2024 REASON FOR CONSULTATION: Vaginal bleeding, anemia. Syncopal episode. HISTORY OF PRESENT ILLNESS: The patient is a 39-year-old female with past medical history of uterine tumor fibroid complaining of weakness. The patient passed out at home. She was brought in with vaginal bleeding for 3 weeks. The patient was seen in [place] 10 days ago and sent home. Today, the patient presented with low hemoglobin. Ultrasound revealed 14 weeks' size uterus with lower uterine segment fibroid of 7 cm. PAST MEDICAL HISTORY: Fibroid. PAST SURGICAL HISTORY: Tubal ligation, , cholecystectomy. SOCIAL HISTORY: None. FAMILY HISTORY: None. OBSTETRIC AND GYNECOLOGIC HISTORY: section x 3. ALLERGIES: No known drug allergies. REVIEW OF SYSTEMS: CONSTITUTIONAL: Reports weakness, no fever or chills. RESPIRATORY: No cough dryness, shortness of breath. CARDIOVASCULAR: No chest pain, palpitation. GASTROINTESTINAL: No nausea, vomiting. GENITOURINARY: No dysuria, no frequency. Positive for bleeding. MUSCULOSKELETAL: No neck pain, shoulder pain. NEUROLOGICAL: No weakness. PHYSICAL EXAMINATION: VITAL SIGNS: At the time of my examination, she had tachycardia, pulse of 120, blood pressure of 110/60. HEENT: Pale conjunctivae. CARDIOVASCULAR: Tachy rate. LUNGS: Clear to auscultation. BREASTS: Symmetrical. No masses. ABDOMEN: Soft, midline mass palpated. PELVIC: External genitalia within normal limits. Vagina normal. Some bleeding. A scant amount noted. Uterus 14 weeks' size. Cervix smooth. EXTREMITIES: No clubbing, cyanosis or edema. IMPRESSION: * Menorrhagia with anemia. * Leiomyomatous uterus. * History of x 3. 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 She will need to have hysterectomy. The patient received 2 units of blood transfusion. Currently, appears to be stable. We will sign off. Thank you very much for this consultation. DO TORSTEN Juarez TID: [id number] RECEIPT: [id number]
[2024-12-08] VITALS (9 sets, daily range): BP systolic 97–110; BP diastolic 63–76; PULSE 70–101; RESP 18–19; TEMP 97.5–98.8; O2SAT 97–100
[2024-12-08] MEDS: DOCUSATE SOD 100 MG CAP PO PRN (05:19)
[2024-12-08] MEDS: ONDANSETRON HCL 4 MG/2 ML VIAL IV PRN (05:19)
--- NOTE | 2024-12-08 13:44 | DVHDS2 ---
Discharge Summary Date of Admission Dec 06, 2024 at 23:02 Date of Discharge: Dec 08, 2024 Labs/Diagnostic Data: Laboratory Results Test 12/07/24 05:10 12/06/24 22:53 12/06/24 18:25 12/06/24 17:00 White Blood Count 4.4 10^3/uL (4.4-10.8) Red Blood Count 2.99 10^6/uL (4.0-5.20) Hemoglobin 9.0 g/dL (12.2-16.2) Hematocrit 26.6 % (36.0-46.0) Mean Corpuscular Volume 88.9 fL (80.0-100.0) Mean Corpuscular Hemoglobin 30.0 pg (28.0-32.0) Mean Corpuscular Hemoglobin Concent 33.7 g/dL (32.0-36.0) Red Cell Distribution Width 13.6 % (11.8-14.3) Platelet Count 151 10^3/uL (140-450) Mean Platelet Volume 9.5 fL (6.9-10.8) Neutrophils (%) (Auto) 55.8 % (37.0-80.0) Lymphocytes (%) (Auto) 34.3 % (10.0-50.0) Monocytes (%) (Auto) 8.2 % (0.0-12.0) Eosinophils (%) (Auto) 1.5 % (0.0-7.0) Basophils (%) (Auto) 0.2 % (0.0-2.0) Neutrophils # (Auto) 2.5 10 ^3/uL (1.6-8.6) Lymphocytes # (Auto) 1.5 10 ^3/uL (0.4-5.4) Monocytes # (Auto) 0.4 10 ^3/uL (0-1.3) Eosinophils # (Auto) 0.1 10 ^3/uL (0-0.8) Basophils # (Auto) 0 10 ^3/uL (0-0.2) Nucleated Red Blood Cells 0.2 % Sodium Level 142 mmol/L (136-145) Potassium Level 3.9 mmol/L (3.5-5.1) Chloride Level 116 mmol/L (98-107) Carbon Dioxide Level 19 mmol/L (20-31) Anion Gap 7 (5-15) Blood Urea Nitrogen < 5 mg/dL (9-23) Creatinine 0.44 mg/dL (0.550-1.02) Glomerular Filtration Rate Calc 126 mL/min (>90) BUN/Creatinine Ratio 11.4 (10.0-20.0) Serum Glucose 98 mg/dL (74-106) Calcium Level 7.6 mg/dL (8.7-10.4) Total Bilirubin 0.8 mg/dL (0.2-1.0) Aspartate Amino Transferase (AST) 9 U/L (13-40) Alanine Aminotransferase (ALT) < 9 U/L (7-40) Alkaline Phosphatase 43 U/L (46-116) Total Protein 4.7 g/dL (5.7-8.2) Albumin 2.9 g/dL (3.2-4.8) Troponin I High Sensitivity 7 ng/L (</=34) Urine Color Colorless (Yellow) Urine Clarity Clear (Clear) Urine pH 5.0 (5.0-9.0) Urine Specific [place] 1.008 (1.001-1.035) Urine Protein Negative (Negative) Urine Ketones Negative (Negative) Urine Blood Negative /uL (Negative) Urine Nitrite Negative (Negative) Urine Bilirubin Negative (Negative) Urine Urobilinogen Normal mg/dL (Negative) Urine Leukocyte Esterase Negative /uL (Negative) Urine RBC <1 /hpf (0 - 4) Urine Microscopic WBC 1 /HPF (0-5) Urine Squamous Epithelial Cells Few /hpf (<5) Urine Bacteria None seen /hpf (None Seen) Urine Glucose Normal mg/dL (Normal) Prothrombin Time 11.4 sec (9.3-11.8) Prothrombin Time INR 1.08 (0.9-1.15) Activated Partial Thromboplast Time 20.1 SEC (24.5-34.5) Other Laboratory Tests 12/07/24 05:10 Final Diagnosis/Problems List vaginal bleed Discharge Disposition: Acute Care Facility Discharge Instruct/Medications Diet: Regular Activity: No Restrictions, As Tolerated Follow Up/Referral: 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 Patient was counseled about treatment plan, medications, possible side effects, patientverbalized understanding. All questions were answered to the best of my ability. This discharge took greater then 30 minutes in planning, reviewing documentation, counseling the patient, and discussing with other team members." ASSESSMENT ASSESSMENT Assessment vaginal bleed BARBARA DAI MD Dec 08, 2024 13:43
[2024-12-08] MEDS: medroxyPROGESTERone ACETATE 5 MG TAB PO ONE (14:27)
--- NOTE | 2024-12-08 14:57 | DVHPN2 ---
Subjective The patient is seen and examined at bedside. at bedside. Request to transfer the patient back to [facility]. Reviewed: Care Plan, H&P, Labs, Medications, Previous Orders, Radiology Changes from previous H/P or p: No Changes Eyes: No Pain, No Vision change, No Conjunctivae inflammation, No Eyelid inflammation, No Other, No Redness ENT: No Ear pain, No Ear discharge, No Nose pain, No Nose discharge, No Nose congestion, No Mouth pain, No Mouth swelling, No Throat pain, No Throat swelling, No Other Cardiovascular: No Chest Pain, No Palpitations, No Orthopnea, No Paroxysmal Noc. Dyspnea, No Edema, No Lt Headedness, No Other Respiratory: No Cough, No Dry, No Shortness of breath, No SOB with excertion, No Wheezing, No Hemoptysis, No Pleuritic Pain, No Sputum, No Other Gastrointestinal: No Nausea, No Vomiting, No Abdominal Pain, No Diarrhea, No Constipation, No Melena, No Hematochezia, No Other Genitourinary: No Dysuria, No Frequency, No Incontinence, No Hematuria, No Retention; Other (Vaginal bleed) Musculoskeletal: No other, No neck pain, No shoulder pain, No arm pain, No back pain, No hand pain, No leg pain, No foot pain Skin: No Rash, No Lesions, No Jaundice, No Bruising, No Other Objective Vitals Vital Signs Date Time Temp Pulse Resp B/P (MAP) Pulse Ox O2 Delivery O2 Flow Rate FiO2 12/08/24 13:00 98.8 95 19 106/66 (79) 98 98.8 12/08/24 08:10 Room Air* 0 21 Intake/Output Intake and Output 12/08/24 07:00 Intake Total 2560 ml Output Total 4200 ml Balance -1640 ml Intake Oral 1560 ml IV Total 1000 ml Output Urine Total 4200 ml # Voids 2 General Appearance: Alert, Oriented X3, Cooperative, No acute distress HEENT: Atraumatic, PERRLA, EOMI, Mucous membr. moist/pink Lungs: Clear to auscultation, Normal air movement Cardiovascular: Regular rate, Normal S1, Normal S2, No murmurs, Gallops, Rubs Abdomen: Normal bowel sounds, Soft, No tenderness Neuro: Cranial nerves 3-12 NL Psych/Mental Status: Mental status NL Medications Current Medications Medications Dose Ordered Sig/Isa Route Start Time Stop Time Status Last Admin Dose Admin Sodium Chloride 1,000 ml @ 60 mls/hr [id number] IV 12/06/24 21:15 12/08/24 05:06 60 MLS/HR Acetaminophen/ Hydrocodone Bitart 1 tab Q4HP PRN PO 12/06/24 21:15 12/08/24 11:08 1 TAB Ondansetron HCl 4 mg Q4HP PRN IV 12/06/24 21:15 12/08/24 05:19 4 MG Docusate Sodium 100 mg BIDPRN PRN PO 12/06/24 21:15 12/08/24 05:19 100 MG Acetaminophen 650 mg Q6HP PRN PO 12/06/24 21:15 Nitroglycerin 0.4 mg Q5MINP PRN SL 12/06/24 23:15 Morphine Sulfate 2 mg Q30M PRN IV 12/06/24 23:15 Medroxyprogesterone Acetate 10 mg DAILY PO 12/09/24 10:00 Laboratory Results Laboratory Tests 12/07/24 05:10 Urinalysis Test 12/06/24 18:25 Urine Color Colorless (Yellow) Urine Clarity Clear (Clear) Urine pH 5.0 (5.0-9.0) Urine Specific [place] 1.008 (1.001-1.035) Urine Protein Negative (Negative) Urine Ketones Negative (Negative) Urine Blood Negative /uL (Negative) Urine Nitrite Negative (Negative) Urine Bilirubin Negative (Negative) Urine Urobilinogen Normal mg/dL (Negative) Urine Leukocyte Esterase Negative /uL (Negative) Urine RBC <1 /hpf (0 - 4) Urine Microscopic WBC 1 /HPF (0-5) Urine Squamous Epithelial Cells Few /hpf (<5) Urine Bacteria None seen /hpf (None Seen) Urine Glucose Normal mg/dL (Normal) Microbiology Microbiology Date/Time Source Procedure Growth Status 12/07/24 08:25 Nose MRSA Screen - Final Complete Labs and/or images reviewed: Labs reviewed by me Assessment/Plan Assessment/Plan Vaginal bleeding Hemorrhagic shock Uterine fibroid Symptomatic anemia Continuing current management. We will check labs today and if hemoglobin less than seven I will transfuse one packed red blood cell. Per RN, her insurance called and requested to transfer the patient to [facility] in [facility] . I will contact pillowcase sewer and initiate transfer. Plan discussed with: Patient, Spouse My Orders Orders - DAI,BARBARA O MD Procedure Category Date Status Time Complete Blood Count LAB 12/08/24 Logged 13:33 * Reception Interviewer CONS 12/08/24 Transmitted Consult Discharge DISCHARGE 12/08/24 Transmitted 13:34 Medroxyprogesterone PHA 12/09/24 In Process Tablet (Provera Tabl 10:00 Date of Service: Dec 08, 2024 Billing Provider: BARBARA DAI MD Common Visit Codes: [id number] INP/OBS CARE(HIGH) BARBARA DAI MD Dec 08, 2024 14:57
[2024-12-08 16:40] LABS: Basophils # (auto) 0 10 ^3/uL (0-0.2); Basophils % (auto) 0.2 % (0.0-2.0); Eosinophils # (auto) 0.1 10 ^3/uL (0-0.8); Eosinophils % (auto) 1.6 % (0.0-7.0); Hematocrit 27.5 % (36.0-46.0); Hemoglobin 9.1 g/dL (12.2-16.2); Lymphocytes # (auto) 1.3 10 ^3/uL (0.4-5.4); Lymphocytes % (auto) 33.7 % (10.0-50.0); Mean Corpuscular Hemoglobin 29.3 pg (28.0-32.0); Mean Corpuscular Hgb Conc. 33.2 g/dL (32.0-36.0); Mean Corpuscular Volume 88.4 fL (80.0-100.0); Monocytes # (auto) 0.3 10 ^3/uL (0-1.3); Monocytes % (auto) 7.5 % (0.0-12.0); Neutrophils # (auto) 2.2 10 ^3/uL (1.6-8.6); Nucleated Red Blood Cells % 0.2 %; Platelet Count (auto) 160 10^3/uL (140-450); Red Blood Cells 3.11 10^6/uL (4.0-5.20); Red Cell Distribution Width 13.8 % (11.8-14.3); White Blood Cell 3.8 10^3/uL (4.4-10.8)
[2024-12-09 01:00] VITALS: BP 100/57; PULSE 86; RESP 18; TEMP 98.5; O2SAT 100
[2024-12-09 05:00] VITALS: BP 98/60; PULSE 95; RESP 19; TEMP 98.1; O2SAT 99
[2024-12-09 08:00] VITALS: PULSE 96; PULSE 97; RESP 18; O2SAT 100
[2024-12-09 09:00] VITALS: BP 92/50; PULSE 97; RESP 18; TEMP 98.2; O2SAT 100
[2024-12-09] MEDS: medroxyPROGESTERone ACETATE 5 MG TAB PO SCH (10:00)
--- NOTE | 2024-12-09 12:48 | DVHDS2 ---
Discharge Summary Date of Admission Dec 06, 2024 at 23:02 Date of Discharge: Dec 08, 2024 Admitting Diagnosis Vaginal bleeding Hemorrhagic shock Uterine fibroid Symptomatic anemia Labs/Diagnostic Data: Laboratory Results Test 12/08/24 15:42 12/07/24 05:10 12/06/24 22:53 12/06/24 18:25 White Blood Count 3.8 10^3/uL (4.4-10.8) Red Blood Count 3.11 10^6/uL (4.0-5.20) Hemoglobin 9.1 g/dL (12.2-16.2) Hematocrit 27.5 % (36.0-46.0) Mean Corpuscular Volume 88.4 fL (80.0-100.0) Mean Corpuscular Hemoglobin 29.3 pg (28.0-32.0) Mean Corpuscular Hemoglobin Concent 33.2 g/dL (32.0-36.0) Red Cell Distribution Width 13.8 % (11.8-14.3) Platelet Count 160 10^3/uL (140-450) Mean Platelet Volume 9.6 fL (6.9-10.8) Neutrophils (%) (Auto) 57.0 % (37.0-80.0) Lymphocytes (%) (Auto) 33.7 % (10.0-50.0) Monocytes (%) (Auto) 7.5 % (0.0-12.0) Eosinophils (%) (Auto) 1.6 % (0.0-7.0) Basophils (%) (Auto) 0.2 % (0.0-2.0) Neutrophils # (Auto) 2.2 10 ^3/uL (1.6-8.6) Lymphocytes # (Auto) 1.3 10 ^3/uL (0.4-5.4) Monocytes # (Auto) 0.3 10 ^3/uL (0-1.3) Eosinophils # (Auto) 0.1 10 ^3/uL (0-0.8) Basophils # (Auto) 0 10 ^3/uL (0-0.2) Nucleated Red Blood Cells 0.2 % Sodium Level 142 mmol/L (136-145) Potassium Level 3.9 mmol/L (3.5-5.1) Chloride Level 116 mmol/L (98-107) Carbon Dioxide Level 19 mmol/L (20-31) Anion Gap 7 (5-15) Blood Urea Nitrogen < 5 mg/dL (9-23) Creatinine 0.44 mg/dL (0.550-1.02) Glomerular Filtration Rate Calc 126 mL/min (>90) BUN/Creatinine Ratio 11.4 (10.0-20.0) Serum Glucose 98 mg/dL (74-106) Calcium Level 7.6 mg/dL (8.7-10.4) Total Bilirubin 0.8 mg/dL (0.2-1.0) Aspartate Amino Transferase (AST) 9 U/L (13-40) Alanine Aminotransferase (ALT) < 9 U/L (7-40) Alkaline Phosphatase 43 U/L (46-116) Total Protein 4.7 g/dL (5.7-8.2) Albumin 2.9 g/dL (3.2-4.8) Troponin I High Sensitivity 7 ng/L (</=34) Urine Color Colorless (Yellow) Urine Clarity Clear (Clear) Urine pH 5.0 (5.0-9.0) Urine Specific [place] 1.008 (1.001-1.035) Urine Protein Negative (Negative) Urine Ketones Negative (Negative) Urine Blood Negative /uL (Negative) Urine Nitrite Negative (Negative) Urine Bilirubin Negative (Negative) Urine Urobilinogen Normal mg/dL (Negative) Urine Leukocyte Esterase Negative /uL (Negative) Urine RBC <1 /hpf (0 - 4) Urine Microscopic WBC 1 /HPF (0-5) Urine Squamous Epithelial Cells Few /hpf (<5) Urine Bacteria None seen /hpf (None Seen) Urine Glucose Normal mg/dL (Normal) Test 12/06/24 17:00 Prothrombin Time 11.4 sec (9.3-11.8) Prothrombin Time INR 1.08 (0.9-1.15) Activated Partial Thromboplast Time 20.1 SEC (24.5-34.5) Other Laboratory Tests 12/08/24 15:42 12/07/24 05:10 Brief Hx & Hospital Course: This is a 39 years old female with past medical history uterine came to [facility] with chief complaint of suprapubic abdominal pain and vaginal bleeding for three weeks. According to the patient she was diagnosis with uterine"tumor" [facility] 10 days ago. She had a results with her and she is supposed to see the OBGYN where she lives which is [place]. Patient come to [facility] Emergency Department because she feel weak and tired. Her hemoglobin was 7. The patient was admitted. The patient was giving one fresh frozen plasma and two packed red blood cell. Ultrasound of vaginal and pelvis showed 7.2 cm hypoechoic lesion in the lower uterine fundus which may reflect a fibroid. Recommend contrast enhanced MRI for further evaluation.2. Thickened endometrium, nonspecific. Correlate with phase of menstrual cycle. [place] on MRI. Bilateral ovaries not visualized. Trace free fluid in the cul de sac, nonspecific. The patient and family requested transfer to the hospital inpatient network for her bleeding problem. Eye contact geriatric case manager and they work with her insurance. However per insurance company they will not transfer her to inpatient work hospital if the patient is stable. Per OBGYN consulted, , her hemoglobin is 9.5 today and she is stable to be discharge. While waiting for discharge the patient grew inpatient and left against medical advice. Physical exam prior to signed out against medical advice show HEENT: Normocephalic atraumatic pupils equal react to light and accommodation. Extraocular muscles intact, conjunctiva pink, oropharynx moist, no thrush, no exudate. Lymphatic: No lymphadenopathy Cardiovascular exam: S1, S2 was heard. No murmurs, rubs, gallops Lung: Clear on auscultation bilaterally, no wheeze, rale, rhonchi. GI: Abdominal soft, nondistended, nontenderness, positive bowel sounds. Extremity: No crepitus, cyanosis, edema. Pedal pulses present bilateral. Full range of motion. Skin: Normal turgor, no rash. Psych: Alert, oriented x3. Neurology: No focal deficits, cranial nerve II to XII grossly intact. This medical document was created using an electronic medical record system with [employer] direct computerized dictation system. Although this document has been carefully reviewed, there may still be some phonetic and typographical errors. These areas are purely typographical due to imperfections of the software programs, and do not reflect any compromise in the patient's medical care. 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 Patient was counseled about treatment plan, medications, possible side effects, patientverbalized understanding. All questions were answered to the best of my ability. This discharge took greater then 30 minutes in planning, reviewing documentation, counseling the patient, and discussing with other team members." ASSESSMENT ASSESSMENT Assessment vaginal bleed Date of Service: Dec 08, 2024 Billing Provider: BARBARA DAI MD Common Visit Codes: [id number] DISCH DAY >30min BARBARA DAI MD Dec 09, 2024 12:48
== END 2024-12-09 10:54 | disposition left against medical advice (07) | DRG 663 ==
LOC: ER 15:16 → EDBD 15:16 → TELE 23:02 → TELE-WESTW 12-07 03:09
PROVIDERS: ADMIT Nurse Practitioner Family; ATTEND Internal Medicine
PROC: 30233N1 Transfusion of Nonautologous Red Blood Cells into Peripheral Vein, Percutaneous Approach (ICD-10-PCS; principal; 2024-12-06)
DX: D62 Acute posthemorrhagic anemia (principal); R57.8 Other shock; N93.9 Abnormal uterine and vaginal bleeding, unspecified; D25.9 Leiomyoma of uterus, unspecified; Z53.29 Procedure and treatment not carried out because of patient's decision for other reasons; Z98.891 History of uterine scar from previous surgery; Z90.49 Acquired absence of other specified parts of digestive tract
CPT/HCPCS: 36415; 76830; 80053; 81001; 84484; 85014; 85018; 85025; 85610; 85730; 86850; 86900; 86901; 86920; 87081; 96365; 96367; 99291; 99292; G0378; J2405